=== PATIENT | female | born 1990 | race Caucasian/White ===

== ENCOUNTER → 2020-03-30 10:04 | Outpatient (CLI) | payer MEDICAID ==
[2020-03-30 10:52] LABS: ALBUMIN 3.8 g/dL (3.4-5.0); BILIRUBIN - DIRECT 0.09 mg/dL (0.00-0.30); BILIRUBIN - INDIRECT 0.37 mg/dL (0.00-1.00); BILIRUBIN - TOTAL 0.46 mg/dL (0.2-1.3)
[2020-03-31 06:10] LABS: HEPATITIS C ANTIBODY 0.1 S/CO RAT (0.0-0.9)
== END | disposition home or self-care (01) ==
LOC: D.LAB 10:04 → D.US 10:30
PROVIDERS: ATTEND Internal Medicine Gastroenterology
DX: R74.0 Nonspecific elevation of levels of transaminase and lactic acid dehydrogenase [LDH] (principal)

== ENCOUNTER → 2020-04-14 09:37 | Outpatient (CLI) | payer MEDICAID | END | disposition home or self-care (01) | LOC: D.MRI 09:37 | PROVIDERS: ATTEND Internal Medicine Gastroenterology | DX: R93.89 Abnormal findings on diagnostic imaging of other specified body structures (principal); K83.8 Other specified diseases of biliary tract ==